=== PATIENT | female | born 1995 | race Caucasian/White ===

== ENCOUNTER → 2020-11-16 | Outpatient (CLI) | payer OTHER ==
--- NOTE | 2020-11-16 13:07 | Diagnostic Imaging Report ---
PROCEDURE: Pelvic comp/transvaginal sonogram. TECHNIQUE: Complete transabdominal and transvaginal pelvic ultrasound was performed. In addition, limited pelvic Doppler was performed. INDICATION: Heavy vaginal bleeding. FINDINGS: The uterus is anteverted measuring 8.1 x 4.0 x 4.8 cm. No myometrial mass is detected. The endometrium is 12 mm in thickness. Trace endometrial fluid is noted. The right ovary measures 3.0 x 1.7 x 3.0 cm and the left ovary measures 2.5 x 1.7 x 1.4 cm. Both ovaries contain small follicles. There is blood flow to both ovaries. No adnexal mass is seen. Trace free fluid is present. IMPRESSION: Essentially unremarkable transabdominal and transvaginal pelvic ultrasound. Dictated by: Dictated on workstation # [id number]
== END ==
LOC: RAD 10:09
PROVIDERS: ATTEND Nurse Practitioner Family
DX: N94.6 Dysmenorrhea, unspecified (principal); N93.9 Abnormal uterine and vaginal bleeding, unspecified
CPT/HCPCS: 76830; 76856